=== PATIENT | male | born 1985 | race American Indian/Alaskan Native ===

== ENCOUNTER 2021-06-19 17:26 | Emergency (ER) | payer OTHER ==
[2021-06-19 17:42] VITALS: BP 167/89
--- NOTE | 2021-06-19 20:32 | Event Note ---
ED Screening Note ED Screening Note: Patient is a 36-year-old male presents emergency room complaints of left-sided chest pain that began today He states he only feels the pain when he takes a deep breath He states that he tested positive for COVID-19 last week States he was given azithromycin, prednisone and albuterol inhaler He states he just started having the pain today He states he also has shortness of breath He did not get vaccinated for COVID-19 He denies any fever, vomiting, diarrhea Past medical history of asthma No allergies to medications This initial assessment/diagnostic orders/clinical plan/treatment(s) is/are subject to change based on patients health status, clinical progression and re- assessment by fellow clinical providers in the ED. Further treatment and workup at subsequent clinical providers discretion. Patient/guardian urged not to elope from the ED as their condition may be serious if not clinically assessed and managed. Initial orders include: Labs, EKG, x-ray
--- NOTE | 2021-06-19 21:39 | XRay Report ---
XR chest routine 2V INDICATION / CLINICAL INFORMATION: SOB, CP, COVID +. COMPARISON: None available. FINDINGS: SUPPORT DEVICES: None. HEART /PULMONARY VASCULATURE: No significant abnormality. LUNGS / PLEURA: No significant pulmonary or pleural abnormality. No pneumothorax. ADDITIONAL FINDINGS: No significant additional findings. IMPRESSION: 1. No acute findings. Signer Name: Vishal Chang MD Signed: 06/19/2021 9:35 PM Workstation Name: [id number]
[2021-06-19 22:07] LABS: Basophils # (Auto) 0.1 K/mm3 (0.0-0.1); Eosinophils % (Auto) 0.4 % (0.0-4.3); Hematocrit 47.7 % (35.5-45.6); Hemoglobin 15.9 gm/dl (11.8-15.2); Lymphocytes # (Auto) 1.5 K/mm3 (1.2-5.4); Lymphocytes % (Auto) 21.5 % (13.4-35.0); Mean Corpuscular HGB Conc 33 % (32-34); Mean Corpuscular Volume 86 fl (84-94); Monocytes # (Auto) 0.5 K/mm3 (0.0-0.8); Monocytes % (Auto) 7.2 % (0.0-7.3); Platelet Count 324 K/mm3 (140-440); Red Blood Count 5.53 M/mm3 (3.65-5.03); Red Cell Distribution Width 13.3 % (13.2-15.2)
[2021-06-19 22:17] LABS: Alanine Aminotransferase 26 units/L (7-56); Albumin 4.7 g/dL (3.9-5); BUN/Creatinine Ratio 13; Blood Urea Nitrogen 12 mg/dL (9-20); Hemolysis Index 6
--- NOTE | 2021-06-19 23:30 | Emergency Department Report ---
ED General Adult HPI - General Chief complaint: Chest Pain Stated complaint: CHEST PAIN Time Seen by Provider: 06/19/21 20:31 Source: patient Mode of arrival: Ambulatory Limitations: No Limitations - History of Present Illness Initial comments: Patient is a 36-year-old -[place] male with a history of asthma and who uses albuterol inhaler at home, and who was recently diagnosed with COVID-19 viral infection about 14 days ago presents to the ED with complaint of intermittent left-sided chest tightness with elevated heart rate for the last 4 hours after using his albuterol inhaler at home. Patient states that he had been self quarantine at home following his diagnosis of COVID-19 and recently tested negative for Covid 19, and prior to the onset of the symptoms he got out of the house after using albuterol inhaler and felt as if he had tachycardia. Patient states that the tachycardia episode has been intermittent with chest tightness. Patient denies fever, chills, nausea and vomiting, dizziness, syncope, change in vision, abdominal pain, back pain, diaphoresis, sore throat, headache, fall or heavy lifting and hemoptysis. MD Complaint: Persistent dry cough, elevated heart rate, left-sided chest tightness -: Sudden, hour(s) (4) Location: chest Radiation: non-radiation Severity scale (0 -10): 3 Quality: other (Tightness) Consistency: intermittent Improves with: none Worsens with: none Associated Symptoms: denies other symptoms, chest pain (Left-sided chest tightness), cough, shortness of breath. denies: diaphoresis, fever/chills, headaches, malaise, nausea/vomiting, rash, seizure, syncope, weakness Treatments Prior to Arrival: none - Related Data Previous Rx's Medication Instructions Recorded Last Taken Type Benzonatate [Tessalon Perles] 100 mg PO Q8HR #30 capsule 06/19/21 Unknown Rx hydrOXYzine PAMOATE [Vistaril] 25 mg PO Q12HR PRN #30 capsule 06/19/21 Unknown Rx Allergies Allergy/AdvReac Type Severity Reaction Status Date / Time No Known Allergies Allergy Verified 06/19/21 17:33 ED Review of Systems ROS: Stated complaint: CHEST PAIN Other details as noted in HPI Constitutional: denies: chills, fever Eyes: denies: eye pain, eye discharge, vision change ENT: congestion. denies: ear pain, throat pain Respiratory: cough, shortness of breath. denies: wheezing Cardiovascular: chest pain (Chest tightness). denies: palpitations Endocrine: no symptoms reported Gastrointestinal: denies: abdominal pain, nausea, vomiting, diarrhea Genitourinary: denies: urgency, dysuria Musculoskeletal: denies: back pain, joint swelling, arthralgia Skin: denies: rash, lesions Neurological: denies: headache, weakness, paresthesias Psychiatric: anxiety. denies: depression Hematological/Lymphatic: denies: easy bleeding, easy bruising ED Past Medical Hx - Past Medical History Previous Medical History?: Yes Hx Asthma: Yes - Medications Home Medications: Home Medications Medication Instructions Recorded Confirmed Last Taken Type Benzonatate [Tessalon Perles] 100 mg PO Q8HR #30 capsule 06/19/21 Unknown Rx hydrOXYzine PAMOATE [Vistaril] 25 mg PO Q12HR PRN #30 capsule 06/19/21 Unknown Rx ED Physical Exam - General Limitations: No Limitations General appearance: alert, in no apparent distress - Head Head exam: Present: atraumatic, normocephalic, normal inspection - Eye Eye exam: Present: normal appearance, PERRL, EOMI Pupils: Present: normal accommodation - ENT ENT exam: Present: normal exam, normal orophraynx, mucous membranes moist, TM's normal bilaterally, normal external ear exam - Neck Neck exam: Present: normal inspection, full ROM - Respiratory Respiratory exam: Present: normal lung sounds bilaterally. Absent: respiratory distress, wheezes, rales, rhonchi, chest wall tenderness, accessory muscle use, decreased breath sounds, prolonged expiratory - Cardiovascular Cardiovascular Exam: Present: normal rhythm, tachycardia, normal heart sounds. Absent: systolic murmur, diastolic murmur, rubs, gallop - GI/Abdominal GI/Abdominal exam: Present: soft, normal bowel sounds. Absent: tenderness, guarding, rebound, hyperactive bowel sounds, hypoactive bowel sounds, organomegaly - Extremities Exam Extremities exam: Present: normal inspection, full ROM, normal capillary refill - Back Exam Back exam: Present: normal inspection, full ROM. Absent: tenderness, CVA tenderness (R), CVA tenderness (L), muscle spasm, paraspinal tenderness, vertebral tenderness - Neurological Exam Neurological exam: Present: alert, oriented X3, CN II-XII intact, normal gait, reflexes normal - Psychiatric Psychiatric exam: Present: normal affect, normal mood, anxious - Skin Skin exam: Present: warm, dry, intact, normal color. Absent: rash ED Course Vital Signs 06/19/21 17:28 Temperature 98 F Pulse Rate 100 H Respiratory 18 Rate Blood Pressure 167/89 [Left] O2 Sat by Pulse 99 Oximetry ED Medical Decision Making - Lab Data Result diagrams: 06/19/21 21:02 06/19/21 21:02 - EKG Data EKG shows normal: sinus rhythm Rate: normal - EKG Data Interpretation: normal EKG 06/19/21 23:34 The EKG shows sinus rhythm with a ventricular rate of 62 bpm and LVH pattern with ST elevation probably due to probable normal early repolarization pattern - Radiology Data Radiology results: report reviewed, image reviewed [address] [address] XRay Report Signed Patient: MITZY ROBERTS MR#: [id number] : 1985 Acct:[id number] Age/Sex: 36 / M ADM Date: 06/19/21 Loc: ED Attending Dr: Ordering Physician: DEBORA MURPHY Date of Service: 06/19/21 Procedure(s): XR chest routine 2V Accession Number(s): [id number] cc: DEBORA MURPHY Fluoro Time In Minutes: XR chest routine 2V INDICATION / CLINICAL INFORMATION: SOB, CP, COVID +. COMPARISON: None available. FINDINGS: SUPPORT DEVICES: None. HEART /PULMONARY VASCULATURE: No significant abnormality. LUNGS / PLEURA: No significant pulmonary or pleural abnormality. No pneumothorax. ADDITIONAL FINDINGS: No significant additional findings. IMPRESSION: 1. No acute findings. Signer Name: Evangelist Ardon MD Signed: 06/19/2021 9:35 PM Workstation Name: [id number] Transcribed By: JS Dictated By: EVANGELIST ARDON MD Electronically Authenticated By: EVANGELIST ARDON MD Signed Date/Time: 06/19/212134 DD/ 33 TD/TT: - Medical Decision Making This is a 36-year-old -[place] male with a history of asthma and who uses albuterol inhaler at home, and who was recently diagnosed with COVID-19 viral infection about 14 days ago presents to the ED with complaint of intermittent left-sided chest tightness with elevated heart rate for the last 4 hours after using his albuterol inhaler at home. Patient states that he had been self quarantine at home following his diagnosis of COVID-19 and recently tested negative for Covid 19, and prior to the onset of the symptoms he got out of the house after using albuterol inhaler and felt as if he had tachycardia. Patient states that the tachycardia episode has been intermittent with chest tightness. In the ED, patient is alert and oriented x3 and is not in any d istress but anxious and tachycardic in triage. EKG shows sinus rhythm with a LVH and ST elevation probably due to early repolarization pattern. Chest x-ray shows no acute cardiopulmonary abnormalities or pneumonitis. Lab test results were reviewed and are all nonactionable. On reevaluation, patient tachycardia resolved and oxygen saturation is 100% in room air. Patient's heart score is 0. Patient symptoms are likely due to anxiety and use of albuterol inhaler prior to the onset of the symptoms. Patient was therefore discharged home and advised to follow-up with his primary care physician in 3 to 5 days for reevaluation or return to the ED immediately if his symptoms get worse. - Differential Diagnosis Pneumonia; COVID-19; PE; ACS; anxiety; dehydration Critical care attestation.: If time is entered above; I have spent that time in minutes in the direct care of this critically ill patient, excluding procedure time. ED Disposition Clinical Impression: Acute nonspecific chest pain with low risk of coronary artery disease, Anxiety as acute reaction to exceptional stress, Acute asthmatic bronchitis Disposition: 01 HOME / SELF CARE / HOMELESS Is pt being admited?: No Does the pt Need Aspirin: No Condition: Stable Instructions: Chest Pain (ED), Nonspecific Chest Pain, Adult, [id number], Generalized Anxiety Disorder, Adult, Acute Bronchitis (ED), Asthma, Adult, [id number], Cough, Adult, [id number] Additional Instructions: All lab test results were reviewed and are all nonactionable. Therefore take medications that were previously prescribed, drink plenty fluids, follow-up with your primary care physician in 3 to 5 days for reevaluation. Return to the ED immediately if symptoms get worse. Prescriptions: Benzonatate [Tessalon Perles] 100 mg PO Q8HR #30 capsule hydrOXYzine PAMOATE [Vistaril] 25 mg PO Q12HR PRN #30 capsule PRN Reason: Anxiety Referrals: PRIMARY CARE, [Primary Care Provider] - 3-5 Days [facility] [Provider Group] - 3-5 Days Time of Disposition: 23:38 Print Language: DIVEHI
--- NOTE | 2021-06-21 09:45 | Electrocardiograph Report ---
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
== END 2021-06-20 00:58 | disposition home or self-care (01) ==
LOC: ED 17:26
DX: R07.9 Chest pain, unspecified (principal); F41.8 Other specified anxiety disorders; F43.0 Acute stress reaction; J45.909 Unspecified asthma, uncomplicated
CPT/HCPCS: 36415; 71046; 80053; 83880; 84484; 85025; 85379; 93005; 99284